=== PATIENT | female | born 1960 | race Caucasian/White ===

== ENCOUNTER → 2020-10-14 | Outpatient (CLI) | payer OTHER ==
--- NOTE | 2020-10-15 17:37 | RAD ---
Examination: 1. Bilateral digital diagnostic mammogram. 2. Limited right breast ultrasound. INDICATION: 60-year-old woman presents for short-term follow-up probably benign inferolateral right b reast finding. She is due for screening. COMPARISON: Bilateral mammograms of 02/28/2019 and 02/27/2018. Limited right breast ultrasound of 2018 TECHNIQUE: CC and MLO views of both breasts were obtained along with bilateral XCCL views. 2-D imagin g was performed and images reviewed with computer-aided detection. Targeted ultrasound of the lower o uter quadrant right breast was also performed. FINDINGS: Heterogeneous and dense breast parenchyma. No dominant mass, suspicious calcification or architectural distortion. Targeted ultrasound of the lower outer right breast in the area of previous sonographic abnormality a t the 7:00 position 4 cm from the nipple shows interval resolution of the previously considered proba aris benign complicated cyst. No persistent sonographic abnormality. IMPRESSION: Negative bilateral mammogram and targeted right breast ultrasound. No evidence of malignancy. BI-RADS Category 1 Negative Recommend return to routine screening next due in one year. Patient entered into a reminder system with targeted due date for next mammogram. Electronically signed by: Getachew Salazar MD (10/15/2020 5:34 PM) [id number]
== END ==
LOC: MAMMO 12:34
PROVIDERS: ATTEND Nurse Practitioner Family
DX: R92.8 Other abnormal and inconclusive findings on diagnostic imaging of breast (principal)
CPT/HCPCS: 76641; 77066

== ENCOUNTER → 2021-10-15 | Outpatient (CLI) | payer OTHER ==
--- NOTE | 2021-10-15 14:34 | RAD ---
DATE: 10/15/2021 EXAM: MG BILAT SCREEN+SAVANNAH HISTORY: Screening COMPARISON: 10/14/2020, 02/28/2019, 02/27/2018, 02/15/2017 This study was interpreted with the benefit of Computerized Aided Detection (CAD). Breast Density: HETERO The breast parenchyma is heterogenously dense, which could reduce sensitivity of mammography. Breast parenchyma level C. FINDINGS: No suspicious mass, suspicious calcification, or architectural distortion. IMPRESSION: No evidence of malignancy. BI-RADS CATEGORY: 1 NEGATIVE RECOMMENDED FOLLOW-UP: 12M 12 MONTH FOLLOW-UP PQRS compliance statement: Patient information was entered into a reminder system with a target due d ate for the next mammogram. Mammography is a sensitive method for finding small breast cancers, but it does not detect them all a nd is not a substitute for careful clinical examination. A negative mammogram does not negate a clin ically suspicious finding and should not result in delay in biopsying a clinically suspicious abnorma lity. "Our facility is accredited by the [employer] Mammography Program." Electronically signed by: Velvet Love MD (10/15/2021 2:32 PM) [id number]
== END ==
LOC: MAMMO 10:41
PROVIDERS: ATTEND Nurse Practitioner Family
DX: Z12.31 Encounter for screening mammogram for malignant neoplasm of breast (principal)
CPT/HCPCS: 77063; 77067